=== PATIENT | female | born 1985 | race Two or more races ===

== ENCOUNTER → 2019-10-08 | Outpatient (CLI) | payer OTHER | END | disposition home or self-care (01) | LOC: PRENATAL 08:00 | DX: Z36.82 Encounter for antenatal screening for nuchal translucency (principal); O36.80X1 Pregnancy with inconclusive fetal viability, fetus 1; O99.89 Other specified diseases and conditions complicating pregnancy, childbirth and the puerperium; Z3A.13 13 weeks gestation of pregnancy; Z36.0 Encounter for antenatal screening for chromosomal anomalies ==

== ENCOUNTER 2020-03-18 06:35 | Inpatient (IN) | payer OTHER ==
[~2020-03-18] VITALS: Ht 157.5 cm; Wt 1.8 kg
[2020-03-18] MEDS ORDERED: PRENATABS RX T1 EACH PO (09:14)
[2020-03-18] MEDS ORDERED: FOLIC ACID0.8 M1 PO (09:15)
[2020-03-18] MEDS ORDERED: OCUVITE LUTEIN1 EAC2 PO (09:15)
[2020-03-18] MEDS ORDERED: WELLBUTRIN XL150 M1 PO (09:16)
[2020-03-18] MEDS ORDERED: TRAZODONE HCL150 MG PO (09:17)
== END 2020-03-21 16:35 | disposition home or self-care (01) | DRG 787 ==
LOC: LDR 06:35 → O/R 14:13 → OB/GYN 17:11
PROVIDERS: ADMIT Obstetrics & Gynecology; ATTEND Obstetrics & Gynecology
PROC: 3E033VJ Introduction of Other Hormone into Peripheral Vein, Percutaneous Approach (ICD-10-PCS; 2020-03-18)
PROC: 4A1HXFZ Monitoring of Products of Conception, Cardiac Rhythm, External Approach (ICD-10-PCS; 2020-03-18)
PROC: 10D00Z1 Extraction of Products of Conception, Low, Open Approach (ICD-10-PCS; principal; 2020-03-18 13:00)
DX: O36.5930 Maternal care for other known or suspected poor fetal growth, third trimester, not applicable or unspecified (principal); F31.89 Other bipolar disorder; O99.344 Other mental disorders complicating childbirth; Z3A.37 37 weeks gestation of pregnancy; Z37.0 Single live birth; O99.824 Streptococcus B carrier state complicating childbirth